=== PATIENT | female | born 1965 | race Caucasian/White ===

== ENCOUNTER 2017-01-25 09:35 | Emergency (ER) | payer OTHER, SELFPAY ==
[~2017-01-25] VITALS: Ht 158.8 cm; Wt 69.1 kg
[2017-01-25] MEDS ORDERED: NS 500 ML IV ONE (11:15)
[2017-01-25] MEDS ORDERED: diphenhydrAMINE 50 MG CAP PO ONE (11:15)
[2017-01-25] MEDS ORDERED: METOCLOPRAMIDE 10 MG TAB PO ONE (11:15)
--- NOTE | 2017-01-25 11:36 | REP ---
Head CT without contrast: History: CVA. Comparison study: No comparison study. CT findings: Bone window settings demonstrate an intact bony calvarium. There is no evidence of skull fracture or incidental bony calvarial lesion. There is minimal vascular calcification in the distal carotid arteries bilaterally. The visualized paranasal sinuses appear clear. No intraorbital abnormality is seen. On soft tissue window setting images; the lateral, third, and fourth ventricles are normal in size and position. Barnett-white differentiation pattern is normal above and below the tentorium. There are is no evidence of intracranial hemorrhage. No mass, edema, infarction, or midline shift is seen. No extra-axial fluid collection is appreciated. Impression: Minimal carotid artery vascular calcification. Otherwise negative noncontrast head CT. Signed by Enrico Mcgill MD 01/25/2017 11:26 A
[2017-01-25 11:49] LABS: BASO # 0.1 10^3/uL (0.0-0.2); BASO % 0.7 % (0.0-1.0); EOS # 0.1 10^3/uL (0.0-0.50); EOS % 0.9 % (0.0-3.0); IMMATURE GRANULOCYTE % 0.2 % (0-0); LYMPH # 2.6 10^3/uL (1.5-4.5); LYMPH % 29.5 % (24.0-44.0); MEAN CORPUSCULAR HEMOGLOBIN 32.1 pg (27.0-33.0); MEAN CORPUSCULAR HGB CONC 33.8 g/dl (32.0-36.5); MONO # 0.4 10^3/uL (0.0-0.8); MONO % 4.3 % (0.0-5.0); NEUTROPHILS # 5.6 10^3/uL (1.8-7.7); NEUTROPHILS % 64.4 % (36.0-66.0); PLATELET COUNT, AUTOMATED 395 10^3/uL (150-450); RED CELL DISTRIBUTION WIDTH 12.3 % (11.5-14.5); WHITE BLOOD COUNT 8.7 10^3/uL (4.0-10.0)
[2017-01-25 12:03] LABS: INR 0.97
[2017-01-25 12:13] LABS: ANION GAP 7 MEQ/L (8-16); BLOOD UREA NITROGEN 10 MG/DL (7-18); CALCIUM LEVEL 9.6 MG/DL (8.5-10.1); CARBON DIOXIDE LEVEL 29 MEQ/L (21-32); CHLORIDE LEVEL 105 MEQ/L (98-107); CREATININE FOR GFR 0.76 MG/DL (0.55-1.02); GLOMERULAR FILTRATION RATE > 60.0 (>51); GLUCOSE, FASTING 87 MG/DL (70-105); POTASSIUM SERUM 3.9 MEQ/L (3.5-5.1); SODIUM LEVEL 141 MEQ/L (136-145)
[2017-01-25 12:32] LABS: ERYTHROCYTE SEDIMENTATION RATE 22 mm/hr (0-30)
[2017-01-25] MEDS ORDERED: traMADol 50 MG TAB PO ONE (15:00)
[2017-01-25] MEDS ORDERED: PROPARACAINE 0.5% OPHTH SOL 15ML OS ONE (15:15)
--- NOTE | 2017-01-25 16:42 | REP ---
MRI brain without contrast: History: Headache and visual changes. Comparison is made with today's head CT. Technique: Axial and sagittal imaging planes are utilized for T1 and T2-weighted scans. Sequences include spin-echo, fast spin echo, FLAIR, and diffusion weighted sequences. Brain MRI findings: No bony calvarial lesion is seen. Craniocervical junction, upper cervical cord are normal in appearance. There is no MR evidence of significant paranasal sinus disease. No intraorbital abnormality is seen. Deep facial and skull base soft tissues are unremarkable. No vascular abnormality is seen. Barnett/white differentiation pattern is normal above and below the tentorium. There is no abnormal white matter lesion. There is no evidence of intracranial hemorrhage. Diffusion weighted scans show no evidence to suggest acute ischemia. No mass, infarction or midline shift is seen. No extra-axial fluid collection is noted. Impression: Normal brain MRI study. Signed by Enrico Mcgill MD 01/25/2017 04:51 P
[2017-01-25] MEDS ORDERED: CYCLOBENZAPRINE 10 MG TAB PO ONE (16:45)
[2017-01-25] MEDS ORDERED: ISOVUE-370 76% 100ML VIAL (Q9967) As Ordered ONE (17:18)
[2017-01-25] MEDS ORDERED: TIZA2CAP3 PO (17:34)
[2017-01-25] MEDS ORDERED: NORT25CA2 PO (17:35)
[2017-01-25] MEDS ORDERED: PRED20TA PO (17:36)
--- NOTE | 2017-01-25 18:25 | REP ---
CT ANGIO of the carotid arteries with IV contrast: History: Headache blurred vision. Question dissection. The patient gives a history of lupus and history of Raynaud's phenomenon. CT contrast dose: 75 ml of intravenous Isovue 370. CT technique: Helical scanning is acquired. 3-D surface rendered images are acquired along with maximal intensity projection axial and coronal images and curved MPR images parallel to the carotid arteries on each side. CT angiographic findings: Great vessel origins are unremarkable. The common carotid arteries are intact. Vertebral arteries are intact bilaterally in the neck. There is no evidence of ICA or vertebral artery stenosis or dissection. The distal internal carotid arteries are intact and symmetric. No significant plaquing or stenosis is seen. Intracranial ICAs are unremarkable. No vessel cutoff is seen. No evidence of hawkins aneurysm. Impression: Unremarkable CT angiography of the neck with IV contrast. No evidence to suggest carotid or vertebral artery dissection stenosis or significant plaquing. The proximal internal carotid arteries are somewhat tortuous bilaterally. Signed by Enrico Mcgill MD 01/25/2017 09:40 P
[2017-01-25 18:32] VITALS: BP 109/57
--- NOTE | 2017-01-26 07:59 | REP ---
MR angiography the brain without contrast: History: Headache, visual changes. Technique: 3-D [id number] MR angiography of the brain is acquired in the usual fashion and maximal intensity projection images were generated in rotational format about the vertical and horizontal axes. In addition, source axial T1-weighted images are viewed in cine mode. MR angiographic findings: The distal vertebral arteries are patent and co-dominant. Basilar artery is a little tortuous but widely patent. The posterior cerebral and superior cerebellar vessels are normal and symmetric. The distal internal carotid arteries are unremarkable. Anterior and middle cerebral arteries appear intact. There is no visible hawkins aneurysm or arteriovenous malformation. Impression: Unremarkable MR angiography the brain. Signed by Enrico Mcgill MD 01/25/2017 04:07 P
== END 2017-01-25 18:45 | disposition home or self-care (01) ==
LOC: M ED 09:35
DX: R51 Headache (principal); Z86.73 Personal history of transient ischemic attack (TIA), and cerebral infarction without residual deficits
CPT/HCPCS: 70450; 70498; 70544; 70551; 80048; 85025; 85610; 85652; 85730; 86140; 93041; 94760; 96360; 96361; 99285; Q9967